=== PATIENT | female | born 1970 | race Caucasian/White ===

== ENCOUNTER 2018-06-25 11:55 | Outpatient (CLI) | payer BC ==
--- NOTE | 2018-06-25 12:47 | RAD ---
TWO VIEW CHEST: Clinical history: Sinus infection. FINDINGS: There is no evidence of consolidation, effusion, or pneumothorax. Cardiomediastinal silhouette is wit hin normal limits of size. IMPRESSION: No focal consolidation. POS: [id number]
== END 2018-06-25 11:56 | disposition home or self-care (01) ==
LOC: SCSRAD 11:55
PROVIDERS: ATTEND Family Medicine
DX: J22 Unspecified acute lower respiratory infection (principal)
CPT/HCPCS: 71046

== ENCOUNTER 2018-07-23 14:00 | Outpatient (CLI) | payer BC | END 2018-07-23 14:01 | disposition home or self-care (01) | LOC: CTENTCT 14:00 | PROVIDERS: ATTEND Specialist | DX: J01.81 Other acute recurrent sinusitis (principal) | CPT/HCPCS: 70486 ==